=== PATIENT | male | born 1955 | race Caucasian/White ===

== ENCOUNTER 2019-03-07 07:18 | Emergency (ER) | payer BC, OTHER ==
[2019-03-07 07:47] LABS: Protime INR 1.11
[2019-03-07 07:50] LABS: Absolute Lymphocytes (CBC) 2.4 K/uL (0.7-4.9); Basophils % 1.2 % (0-1.3); Eosinophils % 4.8 % (0-4.4); Hematocrit 44.2 % (39.6-49.0); Lymphocytes % 35.1 % (15.3-44.8); MPV 7.9 fL (7.6-11.3); Monocytes % 6.1 % (3.3-12.3); RBC Red Blood Cell Count 4.85 M/uL (4.33-5.43)
[2019-03-07 08:04] LABS: Albumin 3.8 g/dL (3.4-5.0); Bilirubin Direct 0.1 mg/dL (0-0.2); Bilirubin Total 0.4 mg/dL (0.2-1.0); Magnesium 2.4 mg/dL (1.8-2.4); Potassium 3.2 mmol/L (3.5-5.1); Protein, Total 6.4 g/dL (6.4-8.2); Troponin (Emerg Dept Use Only) 0.07 ng/mL (0.0-0.045)
[2019-03-07] MEDS ORDERED: NA CHLORIDE 0.9% 1,000 ML ONE ×2 (08:19→08:27)
[2019-03-07] MEDS ORDERED: DOPAMINE/D5W 400 MG/250 ML BAG IV ONE (08:27)
[2019-03-07] MEDS ORDERED: FENTANYL CITR 100 MCG/2 ML ONE (08:27)
--- NOTE | 2019-03-07 08:32 | RAD REPORT ---
EXAM DESCRIPTION: CT - Angio Aorta For Dissection - 03/07/2019 8:02 am CLINICAL HISTORY: Chest pain radiating to the back. hypotensive, back pain, abd pain, cold leg COMPARISON: No comparisons TECHNIQUE: CT angiography of the aorta was performed with MIPs. All CT scans are performed using dose optimization technique as appropriate and may include automated exposure control or mA/KV adjustment according to patient size. FINDINGS: A type A dissection is present. The dissection extends from the root of the aorta to the a ortic bifurcation. There is evidence that the dissection extends into the great vessels including the brachiocephalic artery, left common carotid artery where significant diminished flow is seen and lef t subclavian artery. Flow is seen in both the celiac axis and SMA. Attenuated flow is present in the right renal artery. T he left common iliac artery shows no flow compatible with occlusion. There is some reconstitution of flow in the left SFA. The lungs appear emphysematous. No focal nodule or mass seen. Small hiatal hernia. The liver demonstrates no focal mass or biliary dilatation.Cholelithiasis.Several areas of diminished density in both kidneys compatible with areas of infarction. Spleen appears to contain an area of di minished density inferiorly this is possibly an area of infarct as well as there is some motion artif act in this region.The adrenal glands and pancreas appear unremarkable. No bowel obstruction, free fluid or abscess.No pathologic enlarged lymphadenopathy identified. No fracture or worrisome bone lesion seen. IMPRESSION: Type A aortic dissection is present.The dissection is seen to extend into the brachiocep halic artery, left common carotid artery and left subclavian artery. There is significant reduced blo od flow within the left common carotid artery noted. Significantly reduced/attenuated flow is also seen in the right renal artery resulting in several are as of right renal infarct. Small peripheral infarcts also seen involving the left kidney likely from attenuation of a capsular branch. Left common iliac artery is occluded with some reconstitution of blood flow present in the left femor al artery. The findings were discussed with Dr. Toure On 03/07/2019 at 8:27 a.m. by telephone.
--- NOTE | 2019-03-07 08:34 | ER ---
Nurse's Notes [facility] Name: Roddy Ferrara Age: 63 yrs Sex: Male : 1955 Arrival Date: 03/07/2019 Time: 07:26 Bed 2 Private MD: Diagnosis: Acute aortic dissection;Hypotension, unspecified Presentation: 03/07 07:10 Presenting complaint: EMS states: called out for back pain that started this morning em around 4 this morning, also complaints of left leg pain, left leg cold pale, pt diaphoretic. 07:10 Transition of care: patient was not received from another setting of care. Onset of em symptoms was March 07, 2019. Risk Assessment: Do you want to hurt yourself or someone else? Patient reports no desire to harm self or others. Initial Sepsis Screen: Does the patient meet any 2 criteria? RR > 20 per min. Altered Mental Status. Does the patient have a suspected source of infection? Yes:. Care prior to arrival: None. 07:10 Method Of Arrival: EMS: [facility] em 07:10 Acuity: DAISY 1 ss Historical: - Allergies: 07:36 No Known Allergies; em - PMHx: 07:36 GERD; em - PSHx: 07:36 None; em - Immunization history:: Flu vaccine is not up to date. - Social history:: Smoking status: Patient/guardian denies using tobacco. - Ebola Screening: : Patient negative for fever greater than or equal to 101.5 degrees Fahrenheit, and additional compatible Ebola Virus Disease symptoms Patient denies exposure to infectious person Patient denies travel to an Ebola-affected area in the 21 days before illness onset No symptoms or risks identified at this time. - Family history:: not pertinent. - Hospitalizations: : No recent hospitalization is reported. Screenin:10 Abuse screen: Denies threats or abuse. Nutritional screening: No deficits noted. em Tuberculosis screening: No symptoms or risk factors identified. Fall Risk None identified. Assessment: 07:10 General: Appears distressed, uncomfortable, Behavior is anxious, restless. Pain: em Complains of pain in back and left leg. Neuro: Level of Consciousness is awake, alert. Cardiovascular: Pulses are absent in right dorsalis pedis artery and left posterior tibial artery. Respiratory: Airway is patent Respiratory effort is even, unlabored, Respiratory pattern is symmetrical, tachypnea. GI: Abd is soft and non tender X 4 quads. Derm: Skin is intact, Skin is diaphoretic, Skin is pale, Skin temperature is cold. Musculoskeletal: Capillary refill is sluggish, in bilateral toes. Swelling absent. 07:10 General: Appears distressed, uncomfortable, ill, Behavior is anxious, restless, ss reports that patient has complained of low back pain and painful throat that began this morning at 0400. Neuro: Level of Consciousness is awake, lethargic. Cardiovascular: Heart tones S1 S2 present Capillary refill is > 3 seconds is sluggish in bilateral fingers Pulses are palpable in right posterior tibial artery, right dorsalis pedis artery, left posterior tibial artery and left dorsalis pedis artery Chest pain is denied. Respiratory: Airway is patent Respiratory effort is even, unlabored, Respiratory pattern is regular, symmetrical. GI: Patient currently denies diarrhea, nausea, vomiting. GI: Abdomen is round distended. : No signs and/or symptoms were reported regarding the genitourinary system. EENT: Oral mucosa is dry. Throat is clear. Derm: Skin is intact, Skin is diaphoretic, Skin is pale, Skin temperature is cold. 07:15 Reassessment: doctor at bedside. em 07:36 Reassessment: wheeled to CT with fun house operator. em 07:50 Reassessment: Report received from Alexey Durán Will resume care. sv 07:55 Reassessment: returned from CT. em 08:00 Reassessment: Brought back from CT by Louis NUNES and pt had pulled out his 2 IVs. Louis young reinserted 1 IV. 08:00 General: Appears distressed, uncomfortable, ill, Behavior is anxious, restless, sv moaning. Pain: Complains of pain in back, right leg and left leg Pain currently is 10 out of 10 on a pain scale. Neuro: Level of Consciousness is awake, confused, lethargic, Oriented to person, place. Respiratory: Airway is patent Respiratory effort is even, unlabored, Respiratory pattern is symmetrical, tachypnea. GI: Abdomen is round distended, Abd is soft and non tender X 4 quads. Derm: Skin is mottled, pale, BLE Skin temperature is cold. Musculoskeletal: Reports not being able to move either of his legs or have any feeling. 08:42 Reassessment: Jose G from [facility] called and given information regarding pt. They sv are to arrive in 16 mins. 08:47 General: Appears distressed, uncomfortable, Behavior is anxious, moaning. Pain: sv Complains of pain in back, right leg and left leg. Neuro: Level of Consciousness is awake, alert, confused, lethargic, Oriented to person, place, time, situation. Cardiovascular: Rhythm is sinus rhythm. Respiratory: Airway is patent Respiratory effort is even, unlabored, Respiratory pattern is symmetrical, tachypnea. Derm: Skin is mottled, pale, going down BLE, redness noted going up the neck and face. Vital Signs: 07:15 BP 80 / 56; Pulse 65; Resp 26; Pulse Ox 99% on R/A; em 07:24 BP 153 / 50; Pulse 61; Resp 24; Pulse Ox 100% on Non-rebreather mask; em 07:30 Weight 70 kg; em 08:01 BP 74 / 64; Pulse 72; Pulse Ox 100% on Non-rebreather mask; ss 08:04 BP 63 / 47; Pulse 74; Resp 26; ss 08:12 BP 69 / 51; Pulse 75; Resp 25; ss 08:15 Temp 96.7(TE); ss 08:22 BP 70 / 53; Pulse 68; ss 08:40 BP 79 / 56; Pulse 78; Resp 23; Pulse Ox 99% on 15% Non-rebreather mask; sv 08:50 BP 80 / 60; Pulse 72; Resp 22; Pulse Ox 97% on 15% Non-rebreather mask; sv 08:55 BP 83 / 57; Pulse 76 MON; Resp 22; Pulse Ox 97% on 15% Non-rebreather mask; sv 09:00 BP 72 / 63; Pulse 75; Resp 18; Pulse Ox 97% on 15% Non-rebreather mask; sv 08:55 Sinus Rhythm sv 09:00 MAP-68 sv [place] Coma Score: 08:00 Eye Response: spontaneous(4). Verbal Response: oriented(5). Motor Response: obeys sv commands(6). Total: 15. ED Course: 07:10 Patient has correct armband on for positive identification. Placed in gown. Bed in low em position. cardiac monitor on. Pulse ox on. NIBP on. 07:10 Maintain EMS IV. Dressing intact. Good blood return noted. Site clean \T\ dry. Gauge \T\ em site: 20 LAC. IV is intact. 07:20 Initial lab(s) drawn, by me, sent to lab. T\T\S collected, blood band applied to patient. em Inserted saline lock: 18 gauge in right antecubital area, using aseptic technique. Blood collected. 07:26 Patient arrived in ED. em 07:35 Dorian Toure MD is Attending Physician. rn 07:40 Triage completed. ss 07:47 X-ray completed. Portable x-ray completed in exam room. kp1 07:48 XRAY Chest (1 view) In Process Unspecified. EDMS 07:50 Inserted saline lock: 20 gauge in right antecubital area, using aseptic technique. sv ,using aseptic technique. done by Louis NUNES, fun house operator. 08:00 Inserted saline lock: 18 gauge in left antecubital area, using aseptic technique. sv 08:03 CT Aorta for Dissection In Process Unspecified. EDMS 08:10 transfer initiated with Yue at the [facility]. eb 08:23 connected the cardiothoracic surgeon evp chief exploration officer for [facility] with Dr. Tejal pate for patient transfer consultation. 08:25 Assisted provider with central line placement. Set up central line tray. Triple lumen sv line placed in right femoral. Line placed by Dorian Toure MD Placement verified by blood return, Dressed with Tegaderm, Patient tolerated poorly. Before procedure, did Practitioner(s) obtain informed consent? No. Patient \T\ family education about procedure, CLABSI prevention and S/S of infection? Yes. Time-out/Briefing performed prior to start of procedure? Yes. Was handwashing/sanitizing done immediately prior to procedure? Yes. Was patient positioned to in a way to prevent air embolism? Yes. Was procedure site sterilized? Yes, with chlorhexidine. Was the site allowed to dry? Yes. Was local anesthetic and/or sedation utilized? Yes. During the procedure, did the Practitioner(s) maintain a sterile field? Yes. Were unused ports clamped during insertion? Yes. Was a 2nd qualified MD obtained after 3 unsuccessful insertion attempts? Yes. Was blood aspirated from each lumen? Yes. After the procedure, did the Practitioner(s) clean the site and apply a sterile dressing? Yes. 08:28 administrative approval given by Natalee Chua from the [facility] center/ patient has been accepted to [facility] CVICU/ Dr. Mendoza has accepted the patient in transfer/ report to be called to [phone]/ Natalee will notify [facility] to head this way, they will call with an ETA. 08:35 Rachel Reid RN is Primary Nurse. sv 08:46 Arm band placed on. sv 09:13 Patient transferred, IV remains in place. intact. sv Administered Medications: 07:25 Drug: NS 0.9% 1000 ml Route: IV; Rate: 1000 ml; Site: right antecubital; em 08:01 Follow up: IV Status: Completed infusion; IV Intake: 1000ml em 08:00 Drug: NS 0.9% 1000 ml Route: IV; Rate: 1000 ml; Site: left antecubital; sv 08:40 Follow up: Response: No adverse reaction; IV Status: Completed infusion; IV Intake: sv 1000ml 08:14 Drug: fentaNYL (PF) 25 mcg Route: IVP; Site: left antecubital; sv 08:43 Follow up: Response: No adverse reaction; No change in condition sv 08:14 Drug: Dopamine drip 2 mcg/kg/min - (DOPamine 400 mg, D5W 250 ml) Route: IV; Rate: sv calculated rate; Site: left antecubital; 08:38 Follow up: Rate change 1 calculated rate sv 09:11 Follow up: Response: No adverse reaction; IV Status: Infusion continued upon transfer sv 08:43 Drug: fentaNYL (PF) 50 mcg Route: IVP; Site: right femoral; sv 08:52 Follow up: Response: No adverse reaction; No change in condition sv 08:50 Drug: NS 0.9% 1000 ml Route: IV; Rate: 125 ml/hr; Site: right femoral; sv 09:11 Follow up: Response: No adverse reaction; IV Status: Infusion continued upon transfer sv Intake: 08:01 IV: 1000ml; Total: 1000ml. em 08:40 IV: 1000ml; Total: 2000ml. sv Outcome: 08:34 ER care complete, transfer ordered by MD. nunes 09:11 Transferred by helicopter to [facility], Transfer form completed. X-rays sent sv w/ patient. Note: Report given to Amanda NUNES at [facility] 09:11 Condition: stable 09:11 Instructed on the need for transfer. 09:13 Patient left the ED. sv Signatures: Dispatcher [employer] Rachel Strong, RN RN Alexey Real, EPIC RADIANT ANALYST EPIC RADIANT ANALYST Dorian Muro MD MD rn Smirch, Shelby, RN RN ss Poole, [facility] Tahira Moncada Corrections: (The following items were deleted from the chart) 08:55 08:47 Respiratory: Airway is patent Respiratory effort is even, unlabored, Respiratory sv pattern is regular, symmetrical, sv
--- NOTE | 2019-03-07 08:35 | EDPHYS ---
Physician Documentation [facility] Name: Roddy Ferrara Age: 63 yrs Sex: Male : 1955 Arrival Date: 03/07/2019 Time: 07:26 Bed 2 Private MD: ED Physician Dorian Toure HPI: 03/07 07:53 This 63 yrs old Male presents to ER via EMS with complaints of Back Pain, Leg rn Pain. 07:53 The patient presents with pain. The complaints affect the entire left leg. Onset: The rn symptoms/episode began/occurred at an unknown time. Modifying factors: The symptoms are alleviated by nothing. the symptoms are aggravated by nothing. Severity of symptoms: At their worst the symptoms were moderate, in the emergency department the symptoms are unchanged. It is unknown whether or not the patient has had similar symptoms in the past. Patient not giving any information, just says "my leg is numb". Per EMS only information they got was woke up with pain to chest/back/abdomen, + numbness of left leg and pain. No known medical problems. No known trauma. . Historical: - Allergies: 07:36 No Known Allergies; em - PMHx: 07:36 GERD; em - PSHx: 07:36 None; em - Immunization history:: Flu vaccine is not up to date. - Social history:: Smoking status: Patient/guardian denies using tobacco. - Ebola Screening: : Patient negative for fever greater than or equal to 101.5 degrees Fahrenheit, and additional compatible Ebola Virus Disease symptoms Patient denies exposure to infectious person Patient denies travel to an Ebola-affected area in the 21 days before illness onset No symptoms or risks identified at this time. - Family history:: not pertinent. - Hospitalizations: : No recent hospitalization is reported. ROS: 07:53 Unable to obtain ROS due to patient being uncooperative. rn Exam: 07:53 Constitutional: THin male, pale, appears in pain Head/Face: Normocephalic, rn atraumatic. Eyes: Pupils equal round and reactive to light, extra-ocular motions intact. Lids and lashes normal. Conjunctiva and sclera are non-icteric and not injected. Cornea within normal limits. Periorbital areas with no swelling, redness, or edema. ENT: dry MM Neck: Trachea midline, no thyromegaly or masses palpated, and no cervical lymphadenopathy. Supple, full range of motion without nuchal rigidity, or vertebral point tenderness. No Meningismus. Cardiovascular: Regular rate and rhythm. No pulse deficits. Respiratory: MIld tachypnea, clear breath sounds Abdomen/GI: soft, non-tender Skin: Cool pale skin with duskiness of L>R leg. MS/ Extremity: UNable to palpate pulses in either foot, + weak radial pulses Neuro: Awake and alert, uncooperative. Moving all 4 extremities Vital Signs: 07:15 BP 80 / 56; Pulse 65; Resp 26; Pulse Ox 99% on R/A; em 07:24 BP 153 / 50; Pulse 61; Resp 24; Pulse Ox 100% on Non-rebreather mask; em 07:30 Weight 70 kg; em 08:01 BP 74 / 64; Pulse 72; Pulse Ox 100% on Non-rebreather mask; ss 08:04 BP 63 / 47; Pulse 74; Resp 26; ss 08:12 BP 69 / 51; Pulse 75; Resp 25; ss 08:15 Temp 96.7(TE); ss 08:22 BP 70 / 53; Pulse 68; ss 08:40 BP 79 / 56; Pulse 78; Resp 23; Pulse Ox 99% on 15% Non-rebreather mask; sv 08:50 BP 80 / 60; Pulse 72; Resp 22; Pulse Ox 97% on 15% Non-rebreather mask; sv 08:55 BP 83 / 57; Pulse 76 MON; Resp 22; Pulse Ox 97% on 15% Non-rebreather mask; sv 09:00 BP 72 / 63; Pulse 75; Resp 18; Pulse Ox 97% on 15% Non-rebreather mask; sv 08:55 Sinus Rhythm sv 09:00 MAP-68 sv [place] Coma Score: 08:00 Eye Response: spontaneous(4). Verbal Response: oriented(5). Motor Response: obeys sv commands(6). Total: 15. Procedures: 07:48 Ultrasound: Type: Fast exam, performed by the emergency department physician, Bedside rn u/s unable to detect DP, FAST EXAM negative, aortic windows not able to visualize completely/accurately. . 08:25 Central Line: the site was prepped with Betadine, in sterile fashion, a triple lumen rn catheter was inserted, in the right in 1 attempts. placement was verified, by blood return, the site was dressed with Tegaderm, using sterile technique, the patient tolerated the procedure, well. MDM: 07:36 Patient medically screened. rn 07:36 ED course: Pt with pale and cool pulseless LLE, denies kidney problems, hypotensive and rn complaining of chest and back pain, will get stat CT aorta scan to rule out dissection as cause without waiting on labs. . 08:10 ED course: UNable to contact radiology, looks like acute dissection on CT aorta, needs rn central line for pressure support, initiated transfer. . 08:25 ED course: Accepted for transfer to [facility]. rn 08:26 ED course: Got report from Dr. De Guzman 0826 type A dissection with signs of infarction and rn involvement of left carotid, spleen, great vessels, and left common iliac. Dopamine started for pressure support, trying not to increase BP/HR too much but support perfusion. updated.. 08:32 Differential diagnosis: acute aortic dissection. Data reviewed: vital signs, nurses rn notes, lab test result(s), radiologic studies, CT scan, and as a result, I will admit patient. Counseling: I had a detailed discussion with the patient and/or guardian regarding: the historical points, exam findings, and any diagnostic results supporting the discharge/admit diagnosis, lab results, radiology results, the need for further work-up and treatment in the hospital, the need to transfer to another facility, for higher level of care, [facility] does not immediately have the required specialist. Response to treatment: There is no appreciated change of the patient's symptoms at this time, and as a result, I will admit patient. 08:47 ED course: states symptoms began at 0400. UPdated , BP MAP 65, fentanyl for rn pain. [facility] 10 min away.. 03/07 07:28 Order name: Basic Metabolic Panel eb 03/07 07:28 Order name: CBC with Diff; Complete Time: 08:03/07 07:28 Order name: LFT's; Complete Time: 08:03/07 07:28 Order name: Magnesium; Complete Time: 08:03/07 07:28 Order name: NT PRO-BNP; Complete Time: 08:05 03/07 07:28 Order name: PT-INR; Complete Time: 08:05 03/07 07:28 Order name: Troponin (emerg Dept Use Only); Complete Time: 08:05 eb 03/07 07:28 Order name: XRAY Chest (1 view) eb 03/07 07:28 Order name: TS; Complete Time: 08:32 eb 03/07 07:29 Order name: Basic Metabolic Panel; Complete Time: 08:05 EDMS 03/07 07:31 Order name: Lactate; Complete Time: 08:13 eb 03/07 07:46 Order name: CT Aorta for Dissection; Complete Time: 08:34 rn 03/07 07:28 Order name: EKG; Complete Time: 07:30 eb 03/07 07:28 Order name: Cardiac monitoring; Complete Time: 07:31 eb 03/07 07:28 Order name: EKG - Nurse/Tech; Complete Time: 07:31 eb 03/07 07:28 Order name: IV Saline Lock; Complete Time: 07:31 eb 03/07 07:28 Order name: Labs collected and sent; Complete Time: 07:31 eb 03/07 07:28 Order name: O2 Per Protocol; Complete Time: 07: eb 03/07 07:28 Order name: O2 Sat Monitoring; Complete Time: 07:31 eb Administered Medications: 07:25 Drug: NS 0.9% 1000 ml Route: IV; Rate: 1000 ml; Site: right antecubital; em 08:01 Follow up: IV Status: Completed infusion; IV Intake: 1000ml em 08:00 Drug: NS 0.9% 1000 ml Route: IV; Rate: 1000 ml; Site: left antecubital; sv 08:40 Follow up: Response: No adverse reaction; IV Status: Completed infusion; IV Intake: sv 1000ml 08:14 Drug: fentaNYL (PF) 25 mcg Route: IVP; Site: left antecubital; sv 08:43 Follow up: Response: No adverse reaction; No change in condition sv 08:14 Drug: Dopamine drip 2 mcg/kg/min - (DOPamine 400 mg, D5W 250 ml) Route: IV; Rate: sv calculated rate; Site: left antecubital; 08:38 Follow up: Rate change 1 calculated rate sv 09:11 Follow up: Response: No adverse reaction; IV Status: Infusion continued upon transfer sv 08:43 Drug: fentaNYL (PF) 50 mcg Route: IVP; Site: right femoral; sv 08:52 Follow up: Response: No adverse reaction; No change in condition sv 08:50 Drug: NS 0.9% 1000 ml Route: IV; Rate: 125 ml/hr; Site: right femoral; sv 09:11 Follow up: Response: No adverse reaction; IV Status: Infusion continued upon transfer sv Disposition: 03/07/19 08:34 Transfer ordered to [facility]. Diagnosis are Acute aortic dissection, Hypotension, unspecified. - Reason for transfer: Higher level of care. - Accepting physician is Dr. Mendoza. - Condition is Critical. - Problem is new. - Symptoms are unchanged. Critical care time excluding procedures: 08:32 Critical care time: Bedside Care: 25 minutes, Consultation: 5 minutes, Family rn Intervention: 5 minutes. Total time: 35 minutes Signatures: Dispatcher [employer] EDMI Savannah Contreras, REYMUNDO-C CRANE OPERATOR-Rachel Torre, RN RN sv Alexey Thornton, HABITAT BIOLOGIST HABITAT BIOLOGIST Dorian Muro MD MD rn Smirch, Shelby, RN RN ss Botello, Elizabeth eb Corrections: (The following items were deleted from the chart) 08:07 07:30 Lower Extremity Arterial Bilat+US.RAD.BRZ ordered. [facility] EDMI 09:13 08:34 03/07/2019 08:34 Transfer ordered to [facility]. sv Diagnosis is Acute aortic dissection; Hypotension, unspecified. Reason for transfer: Higher level of care. Accepting physician is Dr. Mendoza. Condition is Critical. Problem is new. Symptoms are unchanged. rn
--- NOTE | 2019-03-07 11:03 | RAD REPORT ---
EXAM DESCRIPTION: RAD - Chest Single View - 03/07/2019 7:48 am CLINICAL HISTORY: CHEST PAIN Chest pain. COMPARISON: <Comparisons> FINDINGS: Portable technique limits examination quality. The lungs are grossly clear. The heart is normal in size. Dilatation of the thoracic aorta ascending region is noted. Advise follow-up CT angiogram the aorta.
--- NOTE | 2019-03-08 06:38 | EKG ---
Test Date: 2019-03-07 Test Time: 07:19:46 Bb Shot Packer: MEASUREMENT RESULTS: Intervals: Rate: 67 GA: 144 QRSD: 134 QT: 510 QTc: 538 [place]: P: 65 GA: 144 QRS: -26 T: 74 INTERPRETIVE STATEMENTS: Normal sinus rhythm Right bundle branch block Abnormal ECG No previous ECG available for comparison Electronically Signed On 03-08-19 06:36:35 CDT by Reji Mcintosh
== END 2019-03-07 09:13 | disposition short-term general hospital (02) ==
LOC: ER 07:18
PROC: 06HM33Z Insertion of Infusion Device into Right Femoral Vein, Percutaneous Approach (ICD-10-PCS; principal; 2019-03-07)
DX: I71.00 Dissection of unspecified site of aorta (principal); I95.9 Hypotension, unspecified
CPT/HCPCS: 36415; 71045; 71275; 74175; 80048; 80076; 83605; 83735; 83880; 84484; 85025; 85610; 86850; 86900; 86901; 93005; 99291; J1265; J3010; J7030; Q9967